=== PATIENT | female | born 1975 | race Caucasian/White ===

== ENCOUNTER 2017-07-09 13:23 | Emergency (ER) | payer MEDICAID ==
--- NOTE | 2017-07-09 13:51 | ED Physician Chart ---
ED Chief Complaint/HPI - Patient Information Date Seen:: 07/09/17 Time Seen:: 13:51 Chief Complaint:: PATIENT HAD SUDDEN ONSET OF LEFT FLANK PAIN AT 7:30 AM. History of Present Illness:: . THE PATIENT HAD SUDDEN ONSET OF LEFT-SIDED BACK PAIN WHICH RADIATES TO THE LEFT LOWER ABDOMEN. THE PATIENT IS WORSE WITH MOVEMENT. SHE HAS NO PRIOR HISTORY OF SIMILAR SYMPTOMS. THE PATIENT'S MOTHER DOES HAVE A HISTORY OF RENAL COLIC. THE PATIENT HAS NAUSEA AND HAS HAD 2 EPISODES OF VOMITING SINCE ONSET OF THE PAIN. PATIENT RATES THE PAIN A 10 OVER 10 IN SEVERITY. MOVEMENT MAKES THE PAIN WORSE. NO RELIEVING SYMPTOMS. Allergies:: Allergies Allergy/AdvReac Type Severity Reaction Status Date / Time No Known Allergies Allergy Verified 07/09/17 13:35 Vitals:: Vital Signs - 8 hr 07/09/17 13:36 Temp 97.8 F HR 91 RR 18 BP 123/57 O2 Sat % 98 Historian:: Family Member (VITAL SIGNS ALL WITHIN NORMAL PARAMETERS.) Family Medical History - Family Member Son Ethnicity: Living Status: Still Living Hx Family Diabetes: Yes ED Septic Shock - . Is Septic Shock (SBP<90, OR Lactate>4 mmol\L) present?: No - <6hrs of presentation: Vital Signs: Vital Signs - 8 hr 07/09/17 13:36 Temp 97.8 F HR 91 RR 18 BP 123/57 O2 Sat % 98 ED Discharge Plan - Patient Disposition Admit/Discharge/Transfer: PT DISCHARGED HOME Condition at Disposition: Improved Instructions: Kidney Stones, Hydronephrosis, Cholecystitis, [id number]
[2017-07-09 15:07] LABS: URINE MICROSCOPIC INDICATED? YES; URINE SOURCE RANDOM
[2017-07-09 15:15] LABS: URINE BILIRUBIN NEGATIVE (NEGATIVE); URINE BLOOD LARGE (NEGATIVE); URINE GLUCOSE (UA) >=1000 mg/dL (NEGATIVE); URINE KETONE TRACE mg/dL (NEGATIVE); URINE LEUKOCYTE ESTERASE TRACE (NEGATIVE); URINE NITRATE POSITIVE (NEGATIVE); URINE PH 6.5 (4.6 - 8.0); URINE PROTEIN NEGATIVE (NEGATIVE)
[2017-07-09 15:20] LABS: URINE CLARITY CLOUDY (CLEAR); URINE COLOR YELLOW
[2017-07-09 15:24] LABS: URINE EPITHELIAL CELLS FEW /lpf (FEW); URINE RBC 50-100 /hpf (0-5)
[2017-07-09 15:25] LABS: URINE BACTERIA MANY /hpf (NONE SEEN)
[2017-07-09] MEDS ORDERED: Morphine Sulfate 4 mg/mL 1mL Syr ONE (16:02)
[2017-07-09 16:13] LABS: % BASOPHILS 0.2 % (0.0-2.0); % EOSINOPHILS 1.3 % (0.0-5.0); % LYMPHOCYTES 5.1 % (20.0-50.0); % MONOCYTES 5.9 % (2.0-10.0); % NEUTROPHILS 87.5 % (40.0-80.0); EOSINOPHILE ABSOLUTE 0.1 Th/cmm (0.1-0.4); HEMATOCRIT 31.9 % (41.0-60); HEMOGLOBIN 10.6 gm/dL (12-16); LYMPHOCYTE ABSOLUTE 0.5 Th/cmm (1.5-3.0); MEAN CELL VOLUME 82.9 fl (81-100); MEAN CORPUSCULAR HEMOGLOBIN 27.6 pg (27.0-31.0); MEAN CORPUSCULAR HGB CONC 33.3 pg (28.0-36.0); MONOCYTE ABSOLUTE 0.6 Th/cmm (0.3-1.0); NEUTROPHILE ABSOLUTE 8.5 Th/cmm (1.8-8.0); PLATELET COUNT 228 Th/cmm (150-400); RED BLOOD COUNT 3.85 Mil/cmm (3.80-5.10); RED CELL DISTRIBUTION WIDTH 14.3 % (11.5-20.0); WHITE BLOOD COUNT 9.7 Th/cmm (4.8-10.8)
[2017-07-09] MEDS: Sodium Chloride 0.9% 1,000 ML IV SCH (16:29)
[2017-07-09 16:32] LABS: ALB/GLOB RATIO 1.5 (1.0-1.8); ALBUMIN 3.8 gm/dL (3.7-5.3); ALKALINE PHOSPHATASE 74 U/L (34-104); ANION GAP 12.9 (7.0-16.0); BILIRUBIN,TOTAL 0.7 mg/dL (0.3-1.0); BUN - UREA NITROGEN 11 mg/dL (7-25); CALCIUM SERUM 9.1 mg/dL (8.6-10.3); CARBON DIOXIDE 23.6 mEq/L (21.0-31.0); CHLORIDE 101 mEq/L (98-107); CREATININE - SERUM 0.6 mg/dL (0.6-1.2); GFR AFRICAN-AMERICAN > 60.0 ml/min (>90); GFR NON AFRICAN-AMERICAN > 60.0 ml/min; GLUCOSE 271 mg/dL (70-105); POTASSIUM SERUM 3.5 mEq/L (3.5-5.1); SGOT 14 U/L (13-39); SGPT/ALT 12 U/L (7-52); SODIUM SERUM 134 mEq/L (136-145); TOTAL PROTEIN,SERUM 6.3 gm/dL (6.0-8.3)
[2017-07-09 19:11] LABS: A1C % 7.5 % (4.0-6.0)
--- NOTE | 2017-07-10 10:07 | Diagnostic Imaging Report ---
CT abdomen and pelvis without intravenous contrast Indication: Abdominal pain, rule out renal stone Comparison: None, Technique: Axial images were obtained from the lung bases to the bilateral proximal femurs without IV contrast. Coronal reconstructions were made. total DLP: [id number], CTDI11.2 FINDINGS: Hypoventilatory atelectatic changes of the lung bases are noted. Assessment of the solid organs is limited due to lack of IV contrast. No evidence of focal hepatic lesions. Gallstones are noted. The spleen is prominent measuring 16 cm. No focal lesions identified. No focal pancreatic or adrenal lesions. There is mild left hydronephrosis with minimal left-sided perinephric inflammatory changes. There is mild left hydroureter. There is a 3 mm stone of the left UVJ. There is mild urinary bladder wall thickening. The uterus appears mildly prominent. Moderate stool is noted. Fluid-filled appendix is noted without evidence of appendicitis. No free fluid or free air. Minimal atherosclerosis is noted. Degenerative changes of the spine and pelvis are noted. IMPRESSION: 3 mm stone of the left UVJ causing mild left hydronephrosis and mild left hydroureter with mild surrounding perinephric inflammatory changes. Please correlate clinically. Suggestion of mild urinary bladder wall thickening. Inflammatory process cannot be excluded. Gallstones. Prominent spleen and mildly prominent uterus also noted.
== END 2017-07-09 18:05 | disposition home or self-care (01) ==
LOC: ER 13:23
DX: R10.30 Lower abdominal pain, unspecified (principal); R11.2 Nausea with vomiting, unspecified
CPT/HCPCS: 36415-UA; 80053-TC; 81001-TC; 83036-90; 85007-TC; 85025-TC; 85027-TC; 87086-90; 96374; 96375; J1885; J2405; J7030